=== PATIENT | male | born 1925 | race Caucasian/White ===

== ENCOUNTER 2016-09-03 11:14 | Inpatient (IN) | payer MEDICARE, OTHER ==
[~2016-09-03] VITALS: Ht 170.2 cm; Wt 58.2 kg
[2016-09-03] VITALS (11 sets, daily range): BP systolic 126–149; BP diastolic 56–75; PULSE 77–85; RESP 14–20; O2SAT 94–100
--- NOTE | 2016-09-03 11:22 | ED.REPORT ---
HPI-Rash / Abscess Date of Service Sep 03, 2016 ED Provider: The patient is an 89 year old male who was sent to the emergency department from urgent care for further evaluation. The patient has had a sore on his right shoulder for the last 8 months. It has worsened since onset and now there is a foul odor. He has not seen a doctor for this prior to today. He denies pain or itching. He is still able to move his shoulder normally. He denies shortness of breath, cough, fever, chills, abdominal pain, nausea, vomiting or diarrhea. He does not take any prescription medication. His long time friend pulled me aside after the interview to discuss the patient' s current living situation. The patient has a home but has been unable to chop wood for his heating at home and subsequently has been staying at a hotel for several weeks. His friends are willing to take him to [place] with them and help manage all of his care. The patient is agreeable with his plan as well. Nursing Notes Stated Complaint: SORE ON RIGHT SHOULDER/SENT FROM Chief Complaint: General Complaint Nursing Notes Reviewed: Yes Allergies: Coded Allergies: No Known Allergies (Verified Allergy, Severe, 01/09/04) General Time Seen by MD: 11:22 Chief Complaint Sore (right shoulder) Hx Obtained From: Patient Arrived By: Walk-in Onset Occurred: More than a week ago... (>6 months) Symptom Duration: Since onset Location: : Shoulder Quality: Painful Severity: Current: Mild Severity: Maximum: Moderate Recent Healthcare: No recent hospitalization, Recent doctor visit Similar Sx Previous: Yes Past Medical History Past Medical History Abdominal mass causing small bowel obstruction He does not take any prescription medication Past Surgical History Abdominal surgery Family History Noncontributory Smoking History Never Smoker Social History Alcohol Use: Denies alcohol use Drug Use: Denies drug use Other Social History: Good social support, Local resident Ambulatory Status Independent Review of Systems Constitutional: Denies: Chills, Fever Respiratory: Denies: Non-productive cough, Shortness of breath GI: Denies: Abdominal pain, Diarrhea, Nausea, Vomiting Musculoskeletal: Denies: Joint pain, Joint swelling Skin: Reports Rash, Reports Swelling Complete sys rev & neg: except as marked. Physical Exam Initial Vital Signs Vital Signs (First) Date Time Temp Pulse Resp B/P Pulse Ox O2 Delivery O2 Flow Rate FiO2 09/03/16 11:17 37.3 82 14 149/70 100 Room Air Initial VS: Reviewed Head / Eyes: Atraumatic, Normocephalic, PERRL ENT: Mucous membranes moist, Conjunctiva normal, No scleral icterus Neck: Supple, Non-tender, Full range of motion Respiratory: Breath sounds normal, Clear to auscultation, No respiratory distress Cardiovascular: Regular rate & rhythm, Heart sounds normal, Intact distal pulses Abdomen / GI: Soft, Non-tender, No guarding, No rebound, No distention Lymphatic: No lymphadenopathy Extremities: Vascular intact, Neuro intact Neurologic: Alert, Oriented, Nonfocal Psychiatric: Mood/affect normal, Behavior normal, Normal thought content General/Constitutional: Awake, Alert, Cooperative Skin: Warm, Dry Upper Extremity / MS: Neurologic intact, Vascular intact There is a fleshy mass over the right shoulder from the lateral edge of the acromion to about midway up the trapezius, it is about 12 x 6 cm, the long dimension is transverse. There is a 2nd lesion down over the deltoid that is about 4x6 cm in size and similar in appearance. There is mild erythema around the wound edges and mildly purulent discharge. Interpretation & Diagnostics Lab Results Interpretation Result Diagram: 09/03/16 1305 09/03/16 1305 Test 09/03/16 13:05 White Blood Count 6.6th/mm3 (3.8-10.1) Red Blood Count 3.00mil/mm3 (4.40-5.80) Hemoglobin 5.8g/dL (13.8-17.2) Hematocrit 20.6% (41.0-50.0) Mean Corpuscular Volume 68.7fL (81-100) Mean Corpuscular Hemoglobin 19.3pg (27.0-35.0) Mean Corpuscular Hemoglobin Concent 28.2% (32.0-37.0) Red Cell Distribution Width 19.5% (12.3-15.4) Platelet Count 532bil/L (150-400) Neutrophils (%) (Auto) 82.6% (40-74) Lymphocytes (%) (Auto) 6.5% (14-46) Monocytes (%) (Auto) 9.9% (4-12) Eosinophils (%) (Auto) 0.6% (0-5) Basophils (%) (Auto) 0.2% (0-3) Sodium Level 135mEq/L (134-144) Potassium Level 4.2mEq/L (3.5-5.2) Chloride Level 97mEq/L (97-108) Carbon Dioxide Level 23mmol/L (18-29) Blood Urea Nitrogen 14mg/dL (8-27) Creatinine 0.81mg/dL (0.76-1.27) Estimat Glomerular Filtration Rate 95mL/min (>59) Glucose Level 169mg/dL (60-99) Calcium Level 7.8mg/dL (8.5-10.1) Total Bilirubin 0.2mg/dL (0.0-1.2) Aspartate Amino Transf (AST/SGOT) 12U/L (0-50) Alanine Aminotransferase (ALT/SGPT) 5U/L (0-44) Alkaline Phosphatase 58U/L (25-160) Total Protein 6.3g/dL (6.4-8.4) Albumin 2.9g/dL (3.4-5.0) Thyroid Stimulating Hormone (TSH) 1.310uIU/mL (0.450-4.500) Hold Alan Top Tube Received (Received) ECG Interpretation ECG Interpretation: Sinus rhythm with a rate of 85 RBBB Time: 12:56 Interpreted by: ED physician X-Ray Chest Interpretation Chest Xray Interpretation: IMPRESSION: Chronic interstitial changes. Slight asymmetric prominence of patchy right basilar opacity. This could be bottling equipment sales representative of asymmetrical chronic interstitial changes. However, superimposed areas of infection or inflammation cannot be excluded. No priors are available for comparison. Dictated by: Marcia Donohue M.D. on 09/03/2016 at 14:09 Interpretation / Wet Read by: Interpret - Radiologist Re-Eval/Medical Decision Med Decision/Clinical Course Our reason for hospitalization is simply to address the anemia. The family would like definitive evaluation and treatment in [place] and would like to go home when reasonably possible. Source of Hx: Old records Re-Evaluation/Progress #1: Time of Eval: 12:44 Re-Evaluation/Progress Note: Discussed plan for surgery consult. All questions were addressed. Re-Evaluation/Progress #2: Time of Eval: 13:15 Re-Evaluation/Progress Note: Discussed plan for admission. The patient is agreeable to stay. Consultation #1: Referral / Consult Name: Vik Fernandez MD Consulted With: Hospitalist Call Returned at: 14:12 Lead C Developer: Will see patient, Agrees with eval, Agrees with plan, Accepts admit Consultation #2: Referral / Consult Name: Blayne Ledesma MD Consulted With: Surgeon Requested Call at: 14:16 Call Returned at: 14:18 Lead C Developer: Will see patient, Agrees with eval, Agrees with plan Counseled Regarding: Diagnosis, Lab results, Need for admission Discharge & Departure Impression: Primary Impression: Severe anemia Additional Impression: Mass of skin of right shoulder Disposition: ADMITTED TO HOSPITAL Discharge Condition All VS Reviewed: Yes Condition: Stable Referrals: Carolyn Mayes MD (PCP) Scribe Attestation Portions of this note were transcribed by Josefa Castle. I, Dr. Cat personally performed the history, physical exam and medical decision-making; I reviewed and confirmed the accuracy of the information in the transcribed note. Signed by: Casimiro Ibanez, 09/03/2016 at 3829. copies to: Carolyn Mayes MD, Kirk H MD Sep 03, 2016 11:22 Josefa Castle Sep 03, 2016 12:11
[2016-09-03 13:08] LABS: BASOPHILS % (AUTO) 0.2 % (0-3); EOSINOPHILS % (AUTO) 0.6 % (0-5); MONOCYTES % (AUTO) 9.9 % (4-12); Mean Corpuscular Hemoglobin 19.3 pg (27.0-35.0); Mean Corpuscular Volume 68.7 fL (81-100); NEUTROPHILS % (AUTO) 82.6 % (40-74); Platelet Count 532 bil/L (150-400)
--- NOTE | 2016-09-03 14:12 | DRSVH ---
PROCEDURE: X-RAY CHEST, TWO VIEWS ([id number]) INDICATIONS: PREOPERATIVE TECHNIQUE: 2 views of the chest were acquired. COMPARISON: None. FINDINGS: Surgical changes and devices: None. Lungs and pleura: No pleural effusions or pneumothorax. Chronic interstitial changes are present. Th ere is a slight asymmetric prominence of patchy opacity within the right base. Mediastinum: Mediastinal contours are normal. Heart size is normal. Bones and chest wall: No suspicious bony abnormalities. Soft tissues appear unremarkable. IMPRESSION: Chronic interstitial changes. Slight asymmetric prominence of patchy right basilar opaci ty. This could be safety representative of asymmetrical chronic interstitial changes. However, superimposed areas of infection or inflammation cannot be excluded. No priors are available for comparison. Dictated by: Marcia Donohue M.D. on 09/03/2016 at 14:09 Approved by: Marcia Donohue M.D. on 09/03/2016 at 14:10
[2016-09-03] MEDS ORDERED: Ondansetron 2 mg/mL 2 mL Inj IVPUSH PRN ×2 (14:20→14:50)
[2016-09-03] MEDS ORDERED: Alum-Mag Hydrox-Simeth 30 mL Suspension PO PRN (14:20)
[2016-09-03] MEDS ORDERED: Lidocaine 1%-Epi 1:100,000 20 mL Inj ONE (14:40)
[2016-09-03] MEDS ORDERED: Silver Nitrate Stick TOPICAL ONE (14:55)
[2016-09-03] MEDS ORDERED: Ampicillin-Sulbactam Inj 1,500 MG in 0.9% Sodium Chloride 50 ML IV ONE (15:00)
[2016-09-03] MEDS ORDERED: Albuterol-Ipratropium 3 mL Inhalation Solution NEB PRN (15:05)
--- NOTE | 2016-09-03 15:53 | CONS ---
[address] [address] CONSULTATION REPORT PATIENT: GEN CABRAL : 1925 MR#: [id number] ADMIT: 09/03/2016 JOB ID: [id number] DATE OF SERVICE: 09/03/2016 REQUESTED BY: Doe Cat MD. REASON FOR CONSULTATION: The patient seen for decision to operate. HISTORY OF PRESENT ILLNESS: The patient is an 89-year-old man who was brought by friends to the emergency department. His primary complaint was a "sore" on his right shoulder. He thinks it has been there for eight months. It is associated with a foul odor. He denies any pain or itching. He has never had it seen by a physician until today. He lives in [place]. He is a nonsmoker. He is accompanied by friends that live in [place] who plan to relocate him to be with them in [place] close to the border [place]. MEDICATIONS: None. ALLERGIES: None. HABITS: Tobacco, none. REVIEW OF SYSTEMS: He also says he has skin lesions on his left arm, left thigh and right thigh. PHYSICAL EXAMINATION: Elderly man, unkempt, very cooperative, in no distress. BMI 24. Temperature 37.3, brachial blood pressure 149/70, pulse 82, respiratory rate 14, O2 sat 100%. HEENT: Unkempt cobos. No scleral icterus. Neck: No obvious masses. Right shoulder: Approximately 12 cm, fungating mass on his right shoulder. Right upper arm: Approximately 8 cm, fungating mass. Left upper arm: An approximate 2 cm, fungating mass. Left thigh and right thigh, 1-2 cm masses. 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 I discussed options with the patient and his friends. I have recommended that we do a biopsy today which can be done right here in the emergency department. Further surgical planning will be made based on those results. If these are basal cell carcinomas, the three smaller ones can be excised and closed, whereas the two large ones are going to create open wounds and it will also take some time to know if all margins are free. He is being admitted to the Hospitalist team because of anemia, which clearly needs to be worked up. PLAN: After discussing options with the patient, he agrees to proceed with obtaining skin biopsies of the two large masses today. He signed a consent allowing that.
--- NOTE | 2016-09-03 16:16 | OP ---
[address] [address] OPERATIVE REPORT PATIENT: GEN CABRAL : 1925 MR#: [id number] ADMIT: 09/03/2016 JOB ID: [id number] DATE OF SURGERY: 09/03/2016 PREOPERATIVE DIAGNOSIS(ES): Large right shoulder and right upper arm fungating masses. POSTOPERATIVE DIAGNOSIS(ES): Large right shoulder and right upper arm fungating masses. PROCEDURE: 1. Biopsy of right upper arm mass. 2. Biopsy of right shoulder mass. SURGEON: Blayne Ledesma MD. INDICATIONS: An 89-year-old man with large fungating masses on his right upper arm and right shoulder but also smaller lesions on both thighs and his left upper arm. With informed consent, he agreed to biopsy the two large masses. PROCEDURE: With local anesthesia with 1% lidocaine with epinephrine, I used iris scissors, and removed adequate pieces of both of the masses. Hemostasis was obtained with silver nitrate and with additional injection of lidocaine with epinephrine and compression. The specimens were submitted in separate containers. Using Telfa, sterile dressings were applied. PLAN: Pending the final pathology report.
--- NOTE | 2016-09-03 16:33 | PCM.HPMED ---
Subjective Date of Service Sep 03, 2016 Primary Provider: Admitting Physician: Primary Care Physician: Alessandro Attending Physician: Chief Complaint: Soft tissue mass, found to have severe anemia, coughing lately HISTORY was OBTAINED FROM PATIENT / H2scanTECH NOTES History of present illness 89-year-old male, no PCP, presents with a shoulder tumor for 8 months due to bad odor associated pain.seen by UC associated drainage. increased dry coughing lately, unable to chop firewood, shoulder pain is not arthritis per patient. other masses include bilateral upper extremities/ lower extremities. no leg swelling, no change in energy. appears to be a poor historian. friends at bedside would like to relocate him to [place]. no blood in stool, poor vision - blurry, no blood in urine no vomiting. unclear type of gastric procedure - no laparotomy scar - in the past.no acid reflux. regular bm , no sinus congestion, baseline smoker's cough in mornings. no dysphagia. no choking on food vegetarian In the ER 37.3, 82, 14, 149/70, room air, lidocaine / Dr. Ledesma s/p skin biopsies Review of Systems - none of the following - F/C/ wt change/ STEIN / lightheaded / dizziness / sob / cough / cp / acid reflux / n/v/diarrhea / bleeding/bruising / leg swelling / change in voiding / ambulates FAMILY HX parents SOCIAL HX distant smoker, last alcohol 4 years ago Staying at a hotel for several weeks, unable to chop wood at his home MEDICATIONS none Past Medical/Surgical HX Skin cancer hx CataractsLEft Stomach cancer vs procedure / SBO? hx Allergies Coded Allergies: No Known Allergies (Verified Allergy, Severe, 01/09/04) PMH Social History Hx Substance Use: No Hx Tobacco Use: No Smoking Status: Never Smoker Exam Vital Signs Vital Sign - Last Date Time Temp Pulse Resp B/P Pulse Ox O2 Delivery O2 Flow Rate FiO2 09/03/16 11:17 37.3 82 14 149/70 100 Room Air Lab and Diagnostics Labs Exam on admission room air NAD A and O x 3 mood affect WNL NC/AT no icterus no injected eyes EOMI /no pharyngeal lesions/ no oral lesions / hearing intact // clouded left pupil Supple neck bilateral crackles equal chest rise / no accessory muscle use / speaks in full sentences RRR S1 S2 / harsh systolic murmur / 2+ radial pulses Soft nt nd + BS no hepatosplenomegaly No edema no cyanosis no ecchymosis of lower extremities No rash / no jaundice DE symmetrical facies Right shoulder mass dressing some blood left arm mass bilateral smaller nodules EKG 85 sinus, right bundle branch block UA pending LFTnorrmal Imaging PROCEDURE: X-RAY CHEST, TWO VIEWS ([id number]) INDICATIONS: PREOPERATIVE TECHNIQUE: 2 views of the chest were acquired. COMPARISON: None. FINDINGS: Surgical changes and devices: None. Lungs and pleura: No pleural effusions or pneumothorax. Chronic interstitial changes are present. There is a slight asymmetric prominence of patchy opacity within the right base. Mediastinum: Mediastinal contours are normal. Heart size is normal. Bones and chest wall: No suspicious bony abnormalities. Soft tissues appear unremarkable. IMPRESSION: Chronic interstitial changes. Slight asymmetric prominence of patchy right basilar opacity. This could be financial services representative of asymmetrical chronic interstitial changes. However, superimposed areas of infection or inflammation cannot be excluded. No priors are available for comparison. Result Diagram: 09/03/16 1305 09/03/16 1305 Assessment & Plan Active issues and reason for admission Soft tissue masses fungating of bilateral upper extremities, smaller lower extremiteis --unasyn --penidng Dr Ledesma, suspect basal cell cancer pending path to r/o melanoma then excision/resection plan Right patchy opacity lung with a left shift, pneumonia/bronchitis --former smoker --incentive spirometer duoneb --unasyn, --sputum cx respiratory viral pending Microcytic anemia --iron/b12/tsh/folate/retic/fecal occult pending, consider GI in am --3u rbc --vegetarian, start B12 now --famotidine Chronic issues known prior to admission, present on admission systolic murmur skin cancer gastric procedure in past Diet vegetarian DVT prophylaxis scd ambulate Code full Disposition inpt Assessment and plan were discussed with patient friends. Vik Fernandez MD Sep 03, 2016 14:50
--- NOTE | 2016-09-03 20:23 | NUR ---
ADMIT/BLOOD TRANSFUSION Patient was received from the ED via a gurney. Transferred to bed with assist. Denies pain. Tolerating liquids PO and his diet well. Denies nausea. No emesis noted. Denies SOB. Patient was able to get OOB and ambulate. Gait is steady. Taylor alarm is on for safety since patient is impulsive. HGB-5.8. Per Dr. Fernandez transfuse 3 u of PRBC. Blood consent form has been signed. 1st unit of blood is transfusing without any adverse reactions noted at this time. Care endorsed to incoming RN. Specimen for resp PCR was sent to the lab.
[2016-09-03] MEDS ORDERED: Ampicillin-Sulbactam Inj 1,500 MG in 0.9% Sodium Chloride 50 ML IV SCH (20:30)
[2016-09-03] MEDS: Furosemide 10 mg/mL 2 mL Inj IVPUSH PRN (21:20)
[2016-09-03] MEDS ORDERED: 0.9% Sodium Chloride 250 ML ONE (22:35)
[2016-09-04] VITALS (11 sets, daily range): BP systolic 102–156; BP diastolic 46–77; PULSE 63–92; RESP 18–20; O2SAT 96–98
[2016-09-04] MEDS ORDERED: Ampicillin-Sulbactam Inj 1,500 MG in 0.9% Sodium Chloride 50 ML IV SCH (01:48)
[2016-09-04] MEDS: Furosemide 10 mg/mL 2 mL Inj IVPUSH PRN ×2 (01:50→05:44)
[2016-09-04] MEDS ORDERED: 0.9% Sodium Chloride 250 ML ONE (02:54)
--- NOTE | 2016-09-04 04:52 | NUR ---
Mentation/Blood Transfusions Patient very confused and restless at the beginning of shift. Patient found facing foot of the bed with legs tangled around front of bed. Patient stated he was trying to get out of bed to use br. Patient not able to use urinal or call light. PRBC's given . Temp elevated on transfusion #2. Acetaminophen administered. VSS. Lasix administered after each transfusion. Patient urinating frequently
[2016-09-04 06:43] LABS: Mean Corpuscular Hemoglobin 22.5 pg (27.0-35.0); Mean Corpuscular Volume 71.5 fL (81-100)
[2016-09-04] MEDS: Ampicillin-Sulbactam Inj 1,500 MG in 0.9% Sodium Chloride 50 ML IV SCH ×3 (08:39→21:15)
[2016-09-04] MEDS: Vitamin B Complex/Vit C Tablet PO SCH (08:40)
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
--- NOTE | 2016-09-04 15:28 | PCM.PNMED ---
Subjective Date of Service Sep 04, 2016 Subjective Underwent biopsy of fungating right shoulder mass. Continues to have purulent discharge from fungating mass. A. fib. Transfused 2 PRBCs. Hemoglobin responded appropriately Exam Vital Signs Vital Sign - Last Date Time Temp Pulse Resp B/P Pulse Ox O2 Delivery O2 Flow Rate FiO2 09/04/16 10:40 36.3 76 18 149/66 98 Room Air Intake and Output 09/03/16 09/03/16 09/04/16 Cumulative From/Thru 15:00 23:00 07:00 09/03/16 11:17 - 09/04/16 06:51 Intake Total 732 ml 517 ml 1249 ml Output Total 2250 ml 2250 ml Balance 732 ml -1733 ml -1001 ml Intake Oral 100 ml 100 ml IV Total 91 ml 35 ml 126 ml Packed Cells 641 ml 382 ml 1023 ml Output Urine Total 2250 ml 2250 ml Exam NAD A and O x 3 mood affect WNL. Cachectic NC/AT no icterus no injected eyes EOMI /no pharyngeal lesions/ no oral lesions / hearing intact // clouded left pupil Supple neck Right shoulder fungating mass 6 x 7 cm, scanty purulent discharge from mass. Cleanly dressed bilateral crackles equal chest rise / no accessory muscle use / speaks in full sentences RRR S1 S2 / harsh systolic murmur / 2+ radial pulses Soft nt nd + BS no hepatosplenomegaly No edema no cyanosis no ecchymosis of lower extremities No rash / no jaundice DE symmetrical facies IVs and Medications Medications Reviewed: Medications were reviewed in detail Lab and Diagnostics Result Diagram: 09/04/1620 09/04/16 0620 X-Rays, CTs and MRIs PROCEDURE: X-RAY CHEST, TWO VIEWS ([id number]) INDICATIONS: PREOPERATIVE TECHNIQUE: 2 views of the chest were acquired. COMPARISON: None. FINDINGS: Surgical changes and devices: None. Lungs and pleura: No pleural effusions or pneumothorax. Chronic interstitial changes are present. There is a slight asymmetric prominence of patchy opacity within the right base. Mediastinum: Mediastinal contours are normal. Heart size is normal. Bones and chest wall: No suspicious bony abnormalities. Soft tissues appear unremarkable. IMPRESSION: Chronic interstitial changes. Slight asymmetric prominence of patchy right basilar opacity. This could be roofing sales representative of asymmetrical chronic interstitial changes. However, superimposed areas of infection or inflammation cannot be excluded. No priors are available for comparison. Dictated by: Marcia Donohue M.D. on 09/03/2016 at 14:09 Additional Diagnostics DATE OF SURGERY: 09/03/2016 PREOPERATIVE DIAGNOSIS(ES): Large right shoulder and right upper arm fungating masses. POSTOPERATIVE DIAGNOSIS(ES): Large right shoulder and right upper arm fungating masses. PROCEDURE: 1. Biopsy of right upper arm mass. 2. Biopsy of right shoulder mass. SURGEON: Blayne Ledesma MD. 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 , -Status post biopsy on 09/03 -He will need excision after metastatic workup and treatment of overlying infection. - discussed with patient and adopted son at the bedside. Son is planning to take him to [place], he asks if excision can be done on current admission, discussed with surgery, needs to wait for biopsy Metastatic workup and treatment of overlying infection before excision. -Son will take him to [place] up on discharge tomorrow, he will get the biopsy results from Dr. Ledesma's office. He will get excision and treatment of cancer in [place] #Microcytic anemia requiring transfusion, acute on chronic --iron/b12/tsh/folate/retic/ -occult blood reportedly negative, anemia most likely due to ACD due to cancer. will not pursue GI workup on current admission -- transfused 3u prbc --vegetarian, start B12 now --famotidine # initially suspected pneumonia/bronchitis due to Right patchy opacity lung with a left shift, ruled out -- Patient has no new respiratory complaints. Unlikely to have pneumonia Chronic issues known prior to admission, present on admission #History of skin cancer DVT prophylaxis scd ambulate Code full Disposition : Possible discharge tomorrow Assessment and plan were discussed with patient friends. VTE Mechanical Devices: Intermittant Pneumatic CD Michele Momin MD Sep 04, 2016 15:28
--- NOTE | 2016-09-04 23:33 | NUR ---
Mentation/Activity Patient still confused this shift but not as restless as last night. Patient does not understand that he is at the hospital. Patient cooperative with assessment. Ambulating to br with sitter. VSS. Patient not able to use call light. Sitter in room . Care continues.
[2016-09-05] MEDS: Ampicillin-Sulbactam Inj 1,500 MG in 0.9% Sodium Chloride 50 ML IV SCH ×2 (03:14→09:20)
[2016-09-05 04:19] VITALS: BP 141/68; PULSE 75; RESP 18; O2SAT 97
[2016-09-05 06:17] LABS: Magnesium 2.2 mg/dL (1.6-2.6)
[2016-09-05 06:26] VITALS: PULSE 75
[2016-09-05 06:41] LABS: BASOPHILS % (AUTO) 0.5 % (0-3); MONOCYTES % (AUTO) 9.3 % (4-12); Mean Corpuscular Hemoglobin 22.5 pg (27.0-35.0); NEUTROPHILS % (AUTO) 82.9 % (40-74); Platelet Count 558 bil/L (150-400)
--- NOTE | 2016-09-05 09:18 | PCM.DIMED ---
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 , -Status post biopsy on 09/03 #Microcytic anemia requiring transfusion probably due to cancer , acute on chronic #History of skin cancer Test Results initial hemoglobin 5.8 Diet No restrictions Activity Limited until seen by PCP Call your provider Fever or Chills, Shortness of breath, Bleeding, Chest pain, Vomitting, Excessive diarrhea, Weakness (unilateral) Patient Instructions You were hospitalized due to severe anemia requiring transfusion due to anemia of chronic disease cancer and transfused 2 PRBCs.You also have right shoulder fungation mass which is infected.You underwent biopsy and treated with IV antibiotics. Please continue Augmentin for 7 more days for infection and follow up with your new PCP.Get biopsy results from Dr Ledesma's office.call [phone] for that . Follow-up plan Please follow up with your new PCP Dr Colby Galvez and get referral to oncologist and surgeon. Follow-up with PCP in: 1 week (Dr Colby Galvez ) Provider: Blayne Ledesma MD Follow-up in: 1 week ( you can call his office at [phone]) Michele Momin MD Sep 05, 2016 09:18
[2016-09-05] MEDS ORDERED: OXYC1TAB24 PO (09:19)
[2016-09-05] MEDS ORDERED: AMOX-366 PO (09:19)
[2016-09-05] MEDS: Vitamin B Complex/Vit C Tablet PO SCH (09:28)
[2016-09-05 09:40] VITALS: PULSE 76
--- NOTE | 2016-09-05 10:59 | NUR ---
discharged home with family to [place]. Dressing changed, family taught how to change dressing. pt doing fairly well , denies pain or SOB, ambulating independently, family will get him set up with a PCP on in [place], so he can get Home Health and set up with Oncologist
--- NOTE | 2016-09-05 14:06 | PCM.DC.MED ---
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 , -Status post biopsy on 09/03 #Microcytic anemia requiring transfusion probably due to cancer , acute on chronic #History of skin cancer Consultations surgery Dr Ledesma Procedures XRay, CTs & MRIs PROCEDURE: X-RAY CHEST, TWO VIEWS ([id number]) INDICATIONS: PREOPERATIVE TECHNIQUE: 2 views of the chest were acquired. COMPARISON: None. FINDINGS: Surgical changes and devices: None. Lungs and pleura: No pleural effusions or pneumothorax. Chronic interstitial changes are present. There is a slight asymmetric prominence of patchy opacity within the right base. Mediastinum: Mediastinal contours are normal. Heart size is normal. Bones and chest wall: No suspicious bony abnormalities. Soft tissues appear unremarkable. IMPRESSION: Chronic interstitial changes. Slight asymmetric prominence of patchy right basilar opacity. This could be computer help desk representative of asymmetrical chronic interstitial changes. However, superimposed areas of infection or inflammation cannot be excluded. No priors are available for comparison. Dictated by: Marcia Donohue M.D. on 09/03/2016 at 14:09 Other Diagnostics DATE OF SURGERY: 09/03/2016 PREOPERATIVE DIAGNOSIS(ES): Large right shoulder and right upper arm fungating masses. POSTOPERATIVE DIAGNOSIS(ES): Large right shoulder and right upper arm fungating masses. PROCEDURE: 1. Biopsy of right upper arm mass. 2. Biopsy of right shoulder mass. SURGEON: Blayne Ledesma MD. Brief History as per consult note by Dr Ledesma on 09/03/16 he patient is an 89-year-old man who was brought by friends to the emergency department. His primary complaint was a "sore" on his right shoulder. He thinks it has been there for eight months. It is associated with a foul odor. He denies any pain or itching. He has never had it seen by a physician until today. He lives in [place]. He is a nonsmoker. He is accompanied by friends that live in [place] who plan to relocate him to be with them in [place]. Hospital Course Active issues and reason for admission #Infection of fungating right shoulder mass -No evidence of sepsis - Treated with Unasyn. 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 , -Status post biopsy on 09/03 -He will need excision after metastatic workup and treatment of overlying infection. - discussed with patient and adopted son at the bedside. Son is planning to take him to [place], he asks if excision can be done on current admission, discussed with surgery, needs to wait for biopsy Metastatic workup and treatment of overlying infection before excision. -Son will take him to [place] up on discharge , he will get the biopsy results from Dr. Ledesma's office. He will get excision and treatment of cancer in [place] . He will follow-up with PCP Dr Colby Galvez in [place] . #Microcytic anemia requiring transfusion, acute on chronic -occult blood reportedly negative, anemia most likely due to ACD due to cancer. will not pursue GI workup on current admission -- transfused 3u prbc # initially suspected pneumonia/bronchitis due to Right patchy opacity lung with a left shift, ruled out -- Patient has no new respiratory complaints. Unlikely to have pneumonia Chronic issues known prior to admission, present on admission #History of skin cancer Code full Disposition : Discharge home. Son to take him to [place] Condition on discharge stable Exam Vital Signs (Last) Date Time Temp Pulse Resp B/P Pulse Ox O2 Delivery O2 Flow Rate FiO2 09/05/16 09:40 76 09/05/16 04:19 36.6 18 141/68 97 Room Air Exam NAD A and O x 3 mood affect WNL. Cachectic NC/AT no icterus no injected eyes EOMI /no pharyngeal lesions/ no oral lesions / hearing intact // clouded left pupil Supple neck Right shoulder fungating mass 6 x 7 cm, scanty purulent discharge from mass. Cleanly dressed bilateral crackles equal chest rise / no accessory muscle use / speaks in full sentences RRR S1 S2 / harsh systolic murmur / 2+ radial pulses Soft nt nd + BS no hepatosplenomegaly No edema no cyanosis no ecchymosis of lower extremities No rash / no jaundice DE symmetrical facies Test 09/03/16 13:05 09/04/16 06:20 09/04/16 08:26 09/05/16 05:15 Reticulocyte Count,Calculated 1.4% (0.6-2.6) Iron Level 11ug/dL (35-150) Total Iron Binding Capacity 199ug/dL (250-450) Percent Iron Saturation 6%sat (15-50) Unsaturated Iron Binding 188.0ug/dL Vitamin B12 Level 646pg/mL (211-946) Folate 14.3ng/mL (>3.0) Thyroid Stimulating Hormone (TSH) 1.290uIU/mL (0.450-4.500) Free Thyroxine 1.15ng/dL (0.82-1.77) Hold Alan Top Tube Received (Received) Hemoglobin A1c 5.9% (4.8-5.6) Lactate Dehydrogenase 195U/L (100-190) Procalcitonin 0.10ng/mL (0.00-0.08) White Blood Count 6.4th/mm3 (3.8-10.1) Red Blood Count 4.22mil/mm3 (4.40-5.80) Hemoglobin 9.5g/dL (13.8-17.2) Hematocrit 30.4% (41.0-50.0) Mean Corpuscular Volume 72.0fL (81-100) Mean Corpuscular Hemoglobin 22.5pg (27.0-35.0) Mean Corpuscular Hemoglobin Concent 31.3% (32.0-37.0) Red Cell Distribution Width 21.8% (12.3-15.4) Platelet Count 558bil/L (150-400) Neutrophils (%) (Auto) 82.9% (40-74) Lymphocytes (%) (Auto) 5.1% (14-46) Monocytes (%) (Auto) 9.3% (4-12) Eosinophils (%) (Auto) 2.0% (0-5) Basophils (%) (Auto) 0.5% (0-3) Sodium Level 136mEq/L (134-144) Potassium Level 4.6mEq/L (3.5-5.2) Chloride Level 100mEq/L (97-108) Carbon Dioxide Level 25mmol/L (18-29) Blood Urea Nitrogen 16mg/dL (8-27) Creatinine 0.86mg/dL (0.76-1.27) Estimat Glomerular Filtration Rate 89mL/min (>59) Glucose Level 110mg/dL (60-99) Calcium Level 8.1mg/dL (8.5-10.1) Magnesium Level 2.2mg/dL (1.6-2.6) Total Bilirubin 0.3mg/dL (0.0-1.2) Aspartate Amino Transf (AST/SGOT) 14U/L (0-50) Alanine Aminotransferase (ALT/SGPT) 6U/L (0-44) Alkaline Phosphatase 62U/L (25-160) Total Protein 6.2g/dL (6.4-8.4) Albumin 2.7g/dL (3.4-5.0) Discharge Medications Discharge Medications Amoxicillin/Clav K 875-125 mg (Augmentin 875-125 mg) 1 Each Tablet 1 TABLET PO BID Prescribed by: MICHELE MORELAND MD As needed oxyCODONE-Acetaminophen 5-325 mg (oxyCODONE-Acetaminophen 5-325 mg) 1 Each Tablet 1 TAB PO Q4H PRN PRN For Pain Prescribed by: MICHELE MORELAND MD Followup Plan Disposition: home Follow-up plan Please follow up with your new PCP Dr Colby Galvez and get referral to oncologist and surgeon. Discharge Diet: No restrictions Discharge Activity: Limited until seen by PCP Patient Instructions You were hospitalized due to severe anemia requiring transfusion due to anemia of chronic disease cancer and transfused 2 PRBCs.You also have right shoulder fungation mass which is infected.You underwent biopsy and treated with IV antibiotics. Please continue Augmentin for 7 more days for infection and follow up with your new PCP.Get biopsy results from Dr Ledesma's office.call for that . Follow-up with PCP in: 1 week (Dr Colby Galvez ) Provider: Blayne Ledesma MD Follow-up in: 1 week ( you can call his office at [phone]) Time spent 35 minutes coordinating discharge copies to: Michele Huston MD Sep 05, 2016 14:06
== END 2016-09-05 10:29 | disposition home or self-care (01) | DRG 607 ==
LOC: SED 11:14 → OSC 15:25
PROVIDERS: ADMIT Urology; ATTEND Urology
PROC: 30233N1 Transfusion of Nonautologous Red Blood Cells into Peripheral Vein, Percutaneous Approach (ICD-10-PCS; principal; 2016-09-03)
PROC: 0HBBXZX Excision of Right Upper Arm Skin, External Approach, Diagnostic (ICD-10-PCS; 2016-09-03)
PROC: 30233N1 Transfusion of Nonautologous Red Blood Cells into Peripheral Vein, Percutaneous Approach (ICD-10-PCS; 2016-09-04)
DX: C44.612 Basal cell carcinoma of skin of right upper limb, including shoulder (principal); L08.9 Local infection of the skin and subcutaneous tissue, unspecified; D63.0 Anemia in neoplastic disease